=== PATIENT | male | born 1980 | race Caucasian/White ===

== ENCOUNTER 2018-09-21 22:46 | Emergency (ER) | payer SELFPAY ==
[~2018-09-21] VITALS: Ht 172.7 cm; Wt 59.9 kg
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
[2018-09-21 22:57] VITALS: BP 159/110
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
--- NOTE | 2018-09-21 23:11 | Diagnostic Imaging Report ---
EXAM: XR Right Knee, 3 views CLINICAL HISTORY: Trauma. TECHNIQUE: Three views of the right knee. COMPARISON: No relevant prior studies available. FINDINGS: Bones/joints: No acute fracture. No dislocation. Mild joint space narrowing in the medial compartment of the right knee. Irregularity/defect of weightbearing surface of medial femoral condyle. Soft tissues: No significant soft tissue abnormality. IMPRESSION: 1. No radiographic evidence of acute fracture or dislocation of the right knee. 2. Mild joint space narrowing in the medial compartment of the right knee. 3. Irregularity/defect along weightbearing surface of medial femoral condyle suggestive of osteochondral defect/osteochondritis dissecans.
[2018-09-21 23:36] VITALS: BP 159/110
--- NOTE | 2018-09-21 23:39 | NUR ---
ED Nurse Note: Pt cleared by health care Provider for discharge. DC instructions/prescription was given and explained to pt and verbalized understanding of teachings. All medical deviecs such as ID band removed. Pt is AAO x4, taken away by [facility]ACS department and left with all personal belongings.
== END 2018-09-21 23:41 ==
LOC: EMR 22:57
DX: S92.345D Nondisplaced fracture of fourth metatarsal bone, left foot, subsequent encounter for fracture with routine healing (principal); H10.213 Acute toxic conjunctivitis, bilateral; M25.561 Pain in right knee; X58.XXXA Exposure to other specified factors, initial encounter; Y92.9 Unspecified place or not applicable
CPT/HCPCS: 99284